=== PATIENT | female | born 1950 | race Two or more races ===

== ENCOUNTER 2018-01-11 05:17 | Inpatient (IN) | payer BC, MEDICARE ==
[2018-01-05 11:02] LABS: HEMOGLOBIN 14.7 g/dL (12.0-15.5); MEAN CORPUSCULAR HEMOGLOBIN 29.3 pg (27.0-33.4); MEAN CORPUSCULAR VOLUME 84 fl (80-97); PLATELET COUNT 243 10^3/uL (150-450); RED BLOOD COUNT 5.01 10^6/uL (3.72-5.28); RED CELL DISTRIBUTION WIDTH 13.4 % (11.5-14.0); WHITE BLOOD COUNT 8.3 10^3/uL (4.0-10.5)
[2018-01-05 11:10] LABS: APPEARANCE,URINE CLEAR; BILIRUBIN,URINE NEGATIVE (NEGATIVE); COLOR,URINE COLORLESS; GLUCOSE, URINE NEGATIVE (NEGATIVE); KETONES,URINE NEGATIVE (NEGATIVE); LEUKOCYTE ESTERASE,URINE NEGATIVE (NEGATIVE); NITRITE,URINE NEGATIVE (NEGATIVE); PROTEIN,URINE NEGATIVE (NEGATIVE); URINE SPECIFIC GRAVITY 1.005; UROBILINOGEN,URINE NEGATIVE mg/dL (<2.0)
[2018-01-05 11:18] LABS: ALANINE AMINOTRANSFERASE 15 U/L (9-52); ALBUMIN 4.5 g/dL (3.5-5.0); ALKALINE PHOSPHATASE 72 U/L (38-126); ANION GAP 13 (5-19); ASPARTATE AMINO TRANSFERASE 28 U/L (14-36); BILIRUBIN,DIRECT 0.2 mg/dL (0.0-0.4); BILIRUBIN,TOTAL 1.1 mg/dL (0.2-1.3); BLOOD UREA NITROGEN 18 mg/dL (7-20); CALCIUM 9.9 mg/dL (8.4-10.2); CARBON DIOXIDE 26 mmol/L (22-30); CHLORIDE 105 mmol/L (98-107); GLUCOSE 81 mg/dL (75-110); POTASSIUM 4.5 mmol/L (3.6-5.0); TOTAL PROTEIN 7.5 g/dL (6.3-8.2)
--- NOTE | 2018-01-05 12:53 | EKG REPORT ---
SEVERITY:- BORDERLINE ECG - SINUS RHYTHM LVH BY VOLTAGE : Confirmed by: Nabil Lopez MD 05-Jan-2018 12:52:26
[~2018-01-11 05:17] MED LIST: CEFAZOLIN 2 GM/D5W RTU 2 GM/50 ML RTUPB IV PRN; LACTATED RINGERS 1000 ML IV PRN; LIDOCAINE 0.5% INJ-PF (5 MG/ML) 50 ML SDV SUBCUT PRN
[2018-01-11] MEDS ORDERED: CEFAZOLIN 2 GM/D5W RTU 2 GM/50 ML RTUPB IV ONE (05:27)
[2018-01-11] MEDS ORDERED: HYDROMORPHONE HCL INJ/PF 2 MG/ML AMPULE ONE (07:07)
[2018-01-11] MEDS ORDERED: ONDANSETRON HCL INJ/PF 4 MG/2 ML SDV ONE (07:07)
[2018-01-11] MEDS ORDERED: DEXAMETHASONE SOD PHOSPHATE INJ 4 MG/1 ML VIAL ONE (07:07)
[2018-01-11] MEDS ORDERED: EPHEDRINE SULFATE INJ 50 MG/1 ML AMPULE ONE (07:07)
[2018-01-11] MEDS ORDERED: FENTANYL CITRATE INJ/PF 100 MCG/2 ML AMPUL ONE (07:07)
[2018-01-11] MEDS ORDERED: KETOROLAC TROMETHAMINE 60 MG/2 ML SDV ONE (07:07)
[2018-01-11] MEDS ORDERED: MIDAZOLAM 2 MG/2 ML INJ ONE (07:07)
[2018-01-11] MEDS ORDERED: PROPOFOL INJ 200 MG/20 ML VIAL IV ONE (07:08)
[2018-01-11] MEDS ORDERED: ACETAMINOPHEN 1,000 MG/100 ML RTUPB IV ONE (07:08)
[2018-01-11] MEDS ORDERED: LIDOCAINE 1%/EPINEPHRINE INJ 20 ML VIAL ONE (07:42)
[2018-01-11] MEDS ORDERED: METHYLENE BLUE 50 MG/10 ML AMPULE ONE (07:42)
[2018-01-11] MEDS ORDERED: FENTANYL CITRATE INJ/PF 100 MCG/2 ML AMPUL IV PRN ×3 (08:00)
[2018-01-11] MEDS ORDERED: MORPHINE SULFATE 10 MG/ML INJ IV PRN (08:00)
[2018-01-11] MEDS ORDERED: PROMETHAZINE HCL INJ 25 MG/1 ML VIAL IV PRN ×3 (08:00→10:00)
[2018-01-11] MEDS ORDERED: DIPHENHYDRAMINE HCL 50 MG/ML VIAL IV PRN (08:00)
[2018-01-11] MEDS ORDERED: OXYCODONE-ACETAMINOPHEN 5-325 MG TABLET PO PRN ×3 (08:00→10:00)
[2018-01-11] MEDS ORDERED: ONDANSETRON HCL INJ/PF 4 MG/2 ML SDV IV PRN (08:00)
[2018-01-11] MEDS ORDERED: MEPERIDINE HCL/PF INJ 25 MG/1 ML DISP.SYRIN IV PRN (08:00)
[2018-01-11] MEDS ORDERED: ACETAMINOPHEN 325 MG TABLET PO PRN (10:00)
[2018-01-11] MEDS ORDERED: MORPHINE SULFATE 10 MG/ML INJ IM PRN (10:00)
[2018-01-11] MEDS ORDERED: SIMETHICONE 80 MG TAB.CHEW PO PRN (10:00)
[2018-01-11] MEDS ORDERED: SUCCINYLCHOLINE CHLORIDE INJ 200 MG/10 ML VIAL ONE (13:54)
[2018-01-11] MEDS ORDERED: METOCLOPRAMIDE HCL INJ/PF 10 MG/2 ML SDV ONE (13:54)
[2018-01-11] MEDS ORDERED: VECURONIUM BROMIDE INJ 10 MG VIAL IV ONE (13:54)
[2018-01-11] MEDS: OXYCODONE-ACETAMINOPHEN 5-325 MG TABLET PO PRN (14:08)
[2018-01-11] MEDS: DOCUSATE SODIUM 100 MG CAPSULE PO SCH ×2 (17:55→22:03)
[2018-01-12] MEDS: OXYCODONE-ACETAMINOPHEN 5-325 MG TABLET PO PRN ×2 (03:57→10:28)
[2018-01-12 06:32] LABS: HEMATOCRIT 35.2 % (36.0-47.0); HEMOGLOBIN 12.1 g/dL (12.0-15.5); MEAN CORPUSCULAR HEMOGLOBIN 28.9 pg (27.0-33.4); MEAN CORPUSCULAR HGB CONC 34.4 g/dL (32.0-36.0); MEAN CORPUSCULAR VOLUME 84 fl (80-97); PLATELET COUNT 185 10^3/uL (150-450); RED BLOOD COUNT 4.19 10^6/uL (3.72-5.28); RED CELL DISTRIBUTION WIDTH 13.2 % (11.5-14.0); WHITE BLOOD COUNT 12.6 10^3/uL (4.0-10.5)
[2018-01-12] MEDS ORDERED: PROMETHAZINE HCL INJ 25 MG/1 ML VIAL IV PRN (09:30)
[2018-01-12] MEDS: DOCUSATE SODIUM 100 MG CAPSULE PO SCH (10:16)
--- NOTE | 2018-01-12 12:25 | PDOC PROGRESS REPORT ---
Subjective Progress Note for:: 01/12/18 Subjective:: Patient states that she feels good and is ready to go home; scant vaginal discharge; she is ambulating and voiding without difficulty. Patient denies chest pain, shortness of breath, fever/chills or nausea/vomiting Reason For Visit: genital prolapse; n81.2, n81.11 Physical Exam - Physical Exam Vital Signs: Temp Pulse Resp BP Pulse Ox 98.5 F 79 18 108/55 L 99 01/12/18 11:16 01/12/18 11:16 01/12/18 11:16 01/12/18 11:16 01/12/18 11:16 Intake & Output 01/11/18 01/12/18 01/13/18 06:59 06:59 06:59 Intake Total 0 2600 360 Output Total 2250 500 Balance 0 350 -140 Weight 57.15 kg 58.5 kg General appearance: PRESENT: no acute distress Respiratory exam: PRESENT: clear to auscultation jose f Cardiovascular exam: PRESENT: RRR GI/Abdominal exam: PRESENT: normal bowel sounds, soft Extremities exam: ABSENT: calf tenderness, clubbing, full ROM, joint swelling, pedal edema, tenderness, +1 edema, +2 edema, other - Gynecological Exam Vagina: normal - scant blood on vaginal packing Result Laboratory Results: 01/12/18 06:14 01/11/18 06:00 01/12/18 06:14 WBC 12.6 H RBC 4.19 Hgb 12.1 Hct 35.2 L MCV 84 MCH 28.9 MCHC 34.4 RDW 13.2 Plt Count 185 Assessment & Plan - Diagnosis (1) Prolapsed, uterovaginal, incomplete Is this a current diagnosis for this admission?: Yes (2) Cystocele and rectocele with incomplete uterovaginal prolapse Is this a current diagnosis for this admission?: Yes - Plan Summary Plan Summary: Plan: 1. Status post vaginal hysterectomy with right salpingo-oophorectomy and left salpingectomy, sacral spinous ligament fixation and posterior colporrhaphy-- doing well surgically 2. Discharge home today 3. Follow-up in the office in 2 weeks for postoperative exam or sooner if needed 4. Prescriptions on chart
[2018-01-12 13:01] VITALS: BP 133/66
--- NOTE | 2018-01-12 19:14 | Operative Report ---
Operative Report DATE OF SURGERY: 01/11/18 PREOPERATIVE DIAGNOSIS: 1. Uterine prolapse. 2. Rectocele. 3. Vaginal prolapse POSTOPERATIVE DIAGNOSIS: same OPERATION: 1. Vaginal Hysterectomy with Right Salpingoophorectomy and Left Salpingectomy. 2. Posterior Colporrhaphy. 3. Sacral Spinous Ligament Fixation. 4. Cystoscopy SURGEON: JOSE BERRY 1ST LINEN AIDE: MARY ANN RIVAS ANESTHESIA: GA TISSUE REMOVED OR ALTERED: Uterus, Right and Left tubes and right ovary; excess vaginal mucosa COMPLICATIONS: none ESTIMATED BLOOD LOSS: 100 ml INTRAOPERATIVE FINDINGS: Grade 3 uterine prolapse; Grade 3 rectocele PROCEDURE: The patient was taken to the operating room where general anesthesia was administered without difficulty. Patient was then prepared and draped in normal sterile fashion in the dorsal lithotomy position. A Mederos catheter was then placed in the patient's bladder. A weighted speculum was then placed in the patient's vagina and it was immediately noted that there was grade 3 uterine prolapse. The anterior lip of the cervix was grasped with a Geremias tenaculum. Next, the cervix was injected with lidocaine plus epinephrine. The cervix was then circumferentially incised with a scalpel and the bladder dissected off the pubovesical cervical fascia anteriorly with an open Ray-Salma and the Metzenbaum scissors. The posterior cul-de-sac was then entered sharply without difficulty. At this point a Katy clamp was placed over the uterosacral ligaments on either side. There were then transected and suture ligated with 0 Vicryl. Hemostasis was noted. The cardinal ligaments were then clamped on both sides, transected and suture ligated in a similar fashion. Attempt was made to enter anteriorly with the plane was not located. The uterine arteries and the broad ligament were then serially clamped with Katy clamps, transected and suture- ligated on both sides. Excellent hemostasis was visualized. The anterior cul- de-sac was then entered sharply. A right angle was then placed into the space. Both cornua were then clamped with Katy clamps, transected and the uterus was delivered. These pedicles were then suture-ligated with excellent hemostasis. The right ovary and tube was then located. It was noted that the ovary was very small and retracted into the sidewall. The tube and ovary were then clamped, transected and the pedicle was suture-ligated. Hemostasis was noted. The left tube and ovary were then located by using a [place] clamp. There was no distention of the ovary, which was very small. When I grasped the ovary a small piece detached. I was afraid that bleeding would start and would be difficult to gain hemostasis with bleeding high in that area. Therefore, grasped the left fallopian tube placed a Katy clamp, transected the tube and suture ligated. Hemostasis was noted. Vaginal cuff angles were then closed in with [id number] stitches of 0 Vicryl and transfixed to the ipsilateral cardinal and uterosacral ligaments. The remainder of the vaginal cuff was closed with 0 Vicryl in a running, locked fashion. Hemostasis was noted. Attention was then turned to the posterior colporrhaphy. Incision was made on the perineal body with Metzenbaum scissors. The tissue was then undermined in order to make a vertical incision in the posterior vaginal mucosa. The edges were then held with Allis clamps. The perirectal fascia was then dissected off the posterior vaginal mucosa. The apex of the rectocele was then held with an Allis clamp. A finger was placed in the rectovaginal space, which was used to find the initial spine in preparation for the sacral spinous ligament fixation. The spine was palpated directly in a zone approximately 2 cm medial to the spine was selected for insertion of the Anchorsure. Dr. Rivas inserted the device and placed the anchor. The polypropylene suture was held with a hemostat for later use. Attention was then returned to the posterior repair. 2 -0 Vicryl was used in an interrupted fashion to pass through the margin of the levator ani from the apex down to the posterior fourchette. The sutures were held until the fourchette was reached. The Anchorsure was then loosely attached to the vaginal mucosa, at the apex. Each interrupted suture was then tied. The Anchorsure suture was then cinched down to suspend the vaginal cuff. The excess vaginal mucosa was then trimmed. Vaginal mucosa was then closed in a running, locked fashion with 2-0 Vicryl. Hemostasis was noted. The perineal body was also repaired. The patient was then given methylene blue in preparation for the cystoscopy. The Mederos catheter was removed and the cystoscope was then introduced into the urethra and bladder. After approximately 12 minutes, the methylene blue was seen extruding from the right and left ureteral orifices. The cystoscope was then removed and the Mederos catheter was replaced. Patient tolerated the procedures well. Sponge, lap, needle and instrument counts were correct x2. The patient was given 2 g of Ancef prior to the start of the procedure. Patient was taken to the recovery room in stable condition. Dr. Rivas's assistance and performance of the sacral spinous ligament fixation for central to performing these procedures in a timely and proficient manner.
== END 2018-01-12 14:01 | disposition home or self-care (01) | DRG 743 ==
LOC: INOR 05:17 → 2N 11:05
PROVIDERS: ADMIT Obstetrics & Gynecology; ATTEND Obstetrics & Gynecology
PROC: 0UT07ZZ Resection of Right Ovary, Via Natural or Artificial Opening (ICD-10-PCS; 2018-01-11)
PROC: 0JQC0ZZ Repair Pelvic Region Subcutaneous Tissue and Fascia, Open Approach (ICD-10-PCS; 2018-01-11)
PROC: 0USG0ZZ Reposition Vagina, Open Approach (ICD-10-PCS; 2018-01-11)
PROC: 0TJB8ZZ Inspection of Bladder, Via Natural or Artificial Opening Endoscopic (ICD-10-PCS; 2018-01-11)
PROC: 0UT97ZZ Resection of Uterus, Via Natural or Artificial Opening (ICD-10-PCS; principal; 2018-01-11 07:30)
PROC: 0UT77ZZ Resection of Bilateral Fallopian Tubes, Via Natural or Artificial Opening (ICD-10-PCS; 2018-01-11 07:30)
DX: N81.4 Uterovaginal prolapse, unspecified (principal); N81.11 Cystocele, midline; N95.2 Postmenopausal atrophic vaginitis; I10 Essential (primary) hypertension; Z79.899 Other long term (current) drug therapy; Z85.3 Personal history of malignant neoplasm of breast; Z90.11 Acquired absence of right breast and nipple; Z90.49 Acquired absence of other specified parts of digestive tract
CPT/HCPCS: 36415; 80053; 81001; 84132; 85027; 86850; 86900; 86901; 88307; 93005; 93010; 944; 94799; J0131; J0330; J0690; J1100; J1170; J1885; J2250; J2405; J2550; J2704; J2765; J3010; J3490; J7120; Q9968